=== PATIENT | female | born 1975 | race Two or more races ===

== ENCOUNTER 2017-01-16 17:22 | Emergency (ER) | payer MEDICAID, OTHER ==
[2017-01-16 17:49] VITALS: RESP 18
--- NOTE | 2017-01-16 17:49 | CPEKG ---
Heart Rate: 70 RR Interval: 857 P-R Interval: 136 QRSD Interval: 84 QT Interval: 432 QTC Interval: 467 P [place]: 22 QRS [place]: 21 T Wave Vermillion: -11 EKG Severity - BORDERLINE ECG - EKG Impression: SINUS RHYTHM EKG Impression: BORDERLINE T ABNORMALITIES, INFERIOR LEADS Electronically Signed By: Michael Cantu 16-Jan-2017 18:33:26
[2017-01-16] MEDS ORDERED: MAG HYDROX/AL HYDROX/SIMETH 30 ML UDCUP PO ONE (18:03)
[2017-01-16] MEDS ORDERED: HYOSCYAMINE SULFATE 0.125 MG TAB PO ONE (18:03)
[2017-01-16 18:21] LABS: % IMMATURE GRANULYOCYTES 0.4 % (0.0-1.1); ABSOLUTE IMMATURE GRANULOCYTES 0.04 10^3/uL (0.00-0.10); ADD DIFF? NO; ADD MORPH? NO; ADD SCAN? NO; ATYPICAL LYMPHOCYTE FLAG 10 (0-99); FRAGMENT RBC FLAG 0 (0-99); HEMATOCRIT 37.8 % (38.0-47.0); HEMOGLOBIN 12.8 g/dL (12.6-16.3); LEFT SHIFT FLG 0 (0-99); LIPEMIA HEMOLYSIS FLAG 90 (0-99); MEAN CELL HEMOGLOBIN 30.8 pg (27.9-34.1); MEAN CELL HEMOGLOBIN CONCENTR. 33.9 g/dL (32.4-36.7); MEAN CELL VOLUME 90.9 fL (81.5-99.8); MEAN PLATELET VOLUME 10.7 fL (8.7-11.7); PLATELET CLUMPS FLAG 20 (0-99); PLATELET COUNT 322 10^3/uL (150-400); RED BLOOD CELL COUNT 4.16 10^6/uL (4.18-5.33); RED CELL DISTRIBUTION WIDTH 12.1 % (11.5-15.2)
[2017-01-16 18:27] VITALS: BP 109/65; PULSE 76; O2SAT 96
--- NOTE | 2017-01-16 18:29 | EDPHY ---
H & P Stated Complaint: EPIGASTRIC PAIN STARTED 12PM TODAY, CONSTANT PRESSURE, WITH SOB Time Seen by Provider: 01/16/17 17:46 HPI/ROS: This patient complains of epigastric abdominal pain that was gradual in onset around noon today described as pressure in nature, worse with food ingestion. She states that the pain comes in waves lasting about 15 minutes at a time peak intensity 8/10 current intensity is moderate. Pain does radiate to the back. She does recall having this pain before in the past. She has associated nausea but no vomiting. She also has associated acid reflux symptoms of belching and burning sensation intermittently in her chest. The patient is Italian-speaking only but translation is provided by her who brought her in by private vehicle for further evaluation. She notes no other exacerbating factors for her symptoms. ROS: No fevers or chills. No other constitutional symptoms HEENT: No URI symptoms, sore throat or ear pain. Pulmonary: No pleuritic pain. Cardiovascular: No heart palpitations or lightheadedness. No other complaints GI: She reports normal bowel movement at 7:00 a.m. this morning. : No dysuria, frequency urgency Integumentary: No complaint Endocrine: No complaints Neuro: No complaints Psychiatric: No complaints Complete review of symptoms is otherwise negative. Source: Patient Exam Limitations: No limitations - Personal History LMP (Females 10-55): 8-14 Days Ago - Medical/Surgical History PMH: Obesity. No surgical history Other PMH: DENIES - Family History Significant Family History: No pertinent family hx - Social History Smoking Status: Never smoked Alcohol Use: Rarely Drug Use: None - Physical Exam Exam: General Appearance: Pleasant obese female Alert, no distress. Eyes: Pupils equal and round no pallor or injection. ENT, Mouth: Mucous membranes moist. Respiratory: There are no retractions, lungs are clear to auscultation. Cardiovascular: Regular rate and rhythm. Gastrointestinal: Normoactive, soft, moderate epigastric tenderness with no guarding or rebound. No organomegaly. Minimal lower belly tenderness with no Guarding or rebound back: No CVA tenderness Neurological: GCS 15 with no focal deficits. Skin: Warm and dry, no rashes. Musculoskeletal: Neck is supple nontender. Extremities are symmetrical, full range of motion. Psychiatric: Mood and affect normal DIFFERENTIAL DIAGNOSIS: After history and physical exam differential diagnosis was considered for gastritis, GERD, hepatitis, pancreatitis, cholecystitis, ischemic cardiac disease Constitutional: Initial Vital Signs Temperature (C) 37.0 C 01/16/17 17:35 Heart Rate 69 01/16/17 17:35 Respiratory Rate 18 01/16/17 17:35 Blood Pressure 140/76 H 01/16/17 17:35 O2 Sat (%) 98 01/16/17 17:35 O2 Delivery Mode Room Air Allergies/Adverse Reactions: No Known Allergies Allergy (Unverified 01/16/17 17:41) Home Medications: Medication Instructions Recorded Ranitidine HCl [Zantac] 150 mg PO DAILY #30 tablet 01/16/17 Medical Decision Making - Diagnostics EKG Interpretation: 12 lead EKG-indication epigastric pain 12 lead EKG performed at 5:41 p.m. reveals sinus rhythm at 70 Intervals: Normal throughout [place]: Normal throughout ST segments: Flat T in AVF otherwise normal Overall assessment sinus rhythm, borderline T abnormalities inferior leads, no previous for comparison ED Course/Re-evaluation: Maalox and Levsin p.o. with 6 relief of symptoms to mild intensity. Review of labs reveals minimal leukocytosis, no anemia, normal comp metabolic panel and lipase, nml troponin. Discussion: After workup, chief ruled out hepatitis, pancreatitis, and no evidence of cholecystitis by lab work. Given lack of associated cardiac symptoms, lack of significant risk factors, negative troponin I do not think the patient has a coronary syndrome or ischemic cardiac event. Her presentation is most c/w gastritis and GERD causing her symptoms and counseled regarding this. At the time discharge patient is stable and comfortable with plan to start Zantac, Maalox, bland diet and follow up with Gastroenterology for symptoms are not improving. She understands the need to return to the emergency department should she have any worsening or symptoms despite the treatment - Data Points Laboratory Results: Laboratory Results 01/16/17 18:10 01/16/17 18:15 Medications Given: Discontinued Medications Al Hydroxide/Mg Hydroxide (Maalox Susp) 30 ml PO EDNOW ONE Stop: 01/16/17 18:04 Last Admin: 01/16/17 18:26 Dose: 30 ml Hyoscyamine Sulfate (Levsin, Hyomax-Sl) 0.25 mg PO EDNOW ONE Stop: 01/16/17 18:04 Last Admin: 01/16/17 18:26 Dose: 0.25 mg Departure - Departure Disposition: Home, Routine, Self-Care Clinical Impression: Gastritis Condition: Good Instructions: Gastritis (ED) Additional Instructions: Diagnosis: Gastritis Plan: Start Zantac antacid [place] diet until you feel improved-avoid spicy foods Maalox in addition if needed for symptoms Follow up with primary care physician sometime in the next 3-7 days for a recheck. Return emergency department for any significant worsening despite the treatment plan. Diagnostico: Gastritis Plan: Comenzar Zantac antiacido Dieta suave hasta que se sienta mejor - evite los alimentos picantes Maalox ademas si es necesario para los sintomas Emilia austyn con hernandez doctor primario en los proximos 3-7 edmondson para un chequeo de nuevo. Regrese al departamento de emergencia por cualquier empeoramiento significativo a pesar del plan de tratamiento. Referrals: CLINICA Kaylan MANRIQUE [Primary Care Provider] - As per Instructions Prescriptions: Ranitidine HCl [Zantac] 150 mg PO DAILY #30 tablet Print Language: Italian
[2017-01-16 18:33] VITALS: TEMP 98.6
[2017-01-16 18:41] LABS: ALANINE AMINOTRANSFERASE 31 IU/L (9-52); ALKALINE PHOSPHATASE 99 IU/L (38-126); ANION GAP 13 mEq/L (8-16); ASPARTATE AMINOTRANSFERASE 18 IU/L (14-46); BILIRUBIN,TOTAL 0.6 mg/dL (0.1-1.4); CALCIUM 9.2 mg/dL (8.5-10.4); CARBON DIOXIDE 23 mEq/l (22-31); CHLORIDE 102 mEq/L (97-110); CREATININE 0.5 mg/dL (0.6-1.0); GLOMERULAR FILTRATION RATE > 60; GLUCOSE 156 mg/dL (70-100); POTASSIUM 3.7 mEq/L (3.5-5.2); SODIUM 138 mEq/L (134-144); TOTAL PROTEIN 7.1 g/dL (6.3-8.2)
[2017-01-16 18:48] LABS: TROPONIN I < 0.012 ng/mL (0.000-0.034)
== END 2017-01-16 19:48 | disposition home or self-care (01) ==
LOC: CED 17:22
DX: K29.70 Gastritis, unspecified, without bleeding (principal)
CPT/HCPCS: 80053-PO; 83690-PO; 84484-PO; 85025-PO

== ENCOUNTER 2017-05-19 20:14 | Emergency (ER) | payer OTHER ==
[2017-05-19 20:19] VITALS: TEMP 98.2
[2017-05-19] MEDS ORDERED: HYDROCODONE/APAP 5/325 TAB PO ONE (20:59)
--- NOTE | 2017-05-19 21:27 | EDPHY ---
H & P Stated Complaint: bleeding and cramping since last night. 10 hcg + HPI/ROS: CHIEF COMPLAINT: Vaginal bleeding History by patient HISTORY OF PRESENT ILLNESS: 41-year-old G9 para 6 S AB 2 presents at approximately 10 weeks with vaginal bleeding and lower abdominal pain. Patient states she began spotting early this morning. She was seen at [facility] where they did an ultrasound and told her there was no heartbeat. She returns tonight because she is having increased bleeding and pain. Patient has been seen twice at [facility] for this where she has had 2 ultrasounds that showed an intrauterine . Patient feels slightly dizzy when she stands up but she denies any chest pain or shortness of breath. She has not been using any pads but states that there is blood every time she goes to the bathroom. She denies passing any tissue. She has passed a few clots. REVIEW OF SYSTEMS: As in HPI, and all other systems reviewed and are negative Source: Patient, Family - Personal History LMP (Females 10-55): EDC: 03/06/17 Current Tetanus/Diphtheria Vaccine: Yes Current Tetanus Diphtheria and Acellular Pertussis (TDAP): Yes - Medical/Surgical History Hx Asthma: No Hx Chronic Respiratory Disease: No Hx Diabetes: No Hx Cardiac Disease: No Hx Renal Disease: No Hx Cirrhosis: No Hx Alcoholism: No Hx HIV/AIDS: No Hx Splenectomy or Spleen Trauma: No Other PMH: DENIES - Social History Smoking Status: Never smoked - Physical Exam Exam: General Appearance: Alert, obese, uncomfortable appearing. Eyes: Pupils equal and round, no pallor or injection. Mouth: Mucous membranes moist. Respiratory: Normal, effort, lungs are clear to auscultation. No wheezes, rales or rhonchi. Cardiovascular: Regular rate and rhythm. S1, S2, no murmurs, gallops or rubs appreciated Gastrointestinal: bowel sounds present, Abdomen is soft and nondistended, no masses, minimal suprapubic tenderness : Back: No CVA tenderness, no bony tenderness Neurological: Awake, alert and oriented x 3, no pronator drift, normal gait, no pronator drift Skin: Warm and dry, no rashes. Musculoskeletal: No deformities or tenderness. Extremities: full range of motion, no edema Psychiatric: Patient has normal affect, there is no agitation. Constitutional: Initial Vital Signs Temperature (C) 36.8 C 05/19/17 20:17 Heart Rate 74 05/19/17 20:17 Respiratory Rate 18 05/19/17 20:17 Blood Pressure 125/58 H 05/19/17 20:17 O2 Sat (%) 96 05/19/17 20:17 O2 Delivery Mode Room Air Allergies/Adverse Reactions: No Known Allergies Allergy (Unverified 01/16/17 17:41) Medical Decision Making Procedures: I performed a transabdominal bedside ultrasound to evaluate for intrauterine . No intrauterine was visualized. There was no free fluid in the cul de sac. Impression: No evidence of IUP ED Course/Re-evaluation: [age] old woman presents with ongoing vaginal bleeding at 10 weeks by LMP. Patient had ultrasound yesterday and we obtained the results from the outside hospital which showed a 17 mm cystic collection in the endometrial cavity without yolk sac or pole identified. No free fluid was seen on that ultrasound either. Patient states she had no blood work done at that visit. Given that the patient had pole identified on previous ultrasound at the clinic per her family this suggests miscarriage. My bedside transabdominal ultrasound showed an empty uterus. Again given her prior ultrasounds this is all consistent with miscarriage. Patient was hemodynamically stable. She complained of ongoing crampy lower abdominal pain for which she was given [place] with some improvement. I discussed the diagnosis and expected outcome and course with the patient and her family. I am recommending close follow-up at [facility] where she has been receiving her care. We discussed return precautions including but not limited to bleeding more than 2 pads an hour, chest pain or shortness of breath or fainting. Patient and her family expressed verbal understanding of these instructions and plan. - Data Points Medications Given: Discontinued Medications Hydrocodone Bitart/Acetaminophen ([place] 5/325) 2 tab PO EDNOW ONE Stop: 05/19/17 21:00 Last Admin: 05/19/17 21:07 Dose: 2 tab Departure - Departure Disposition: Home, Routine, Self-Care Clinical Impression: Miscarriage Condition: Good Instructions: Miscarriage (ED) Additional Instructions: You were seen by Dr. Alyce Boyer today. You have had a miscarriage. Please follow-up with your doctor at [facility] at next week. Return immediately to the emergency department if he began bleeding more than 2 pads an hour, have any fainting, chest pain or uncontrolled pain. Try ibuprofen 400 mg 4 times a day for pain and cramping. Return for any worsening or new concerns. Referrals: MADISON MANRIQUE,. [Primary Care Provider] - As per Instructions Print Language: Prydein[place]
[2017-05-19] MEDS ORDERED: HYDROCOD/APAP 5/325 PREPACK#6 BTL TAKEHOME ONE (21:50)
[2017-05-19 22:16] VITALS: BP 123/62; PULSE 78; RESP 16; O2SAT 98
== END 2017-05-19 22:15 | disposition home or self-care (01) ==
LOC: CED 20:14
DX: O03.9 Complete or unspecified spontaneous abortion without complication (principal); Z3A.10 10 weeks gestation of pregnancy